=== PATIENT | male | born 1985 | race Caucasian/White ===

== ENCOUNTER 2018-01-22 10:29 | Outpatient (CLI) | payer MEDICAID ==
--- NOTE | 2018-01-22 14:54 | Ultrasound Report ---
COMPLETE ABDOMINAL ULTRASOUND: 01/22/2018 CLINICAL INDICATION: Pain. TECHNIQUE: Real-time scanning was performed with apprenticeship representative static images obtained. FINDINGS: The liver measures 14.4 cm. Hepatic echotexture is normal. No intrahepatic biliary dilatation or focal parenchymal lesion is present. The common bile duct measures 4 mm. The gallbladder is normal, as is the visualized pancreas. The kidneys are normal, with the right measuring 13.1 cm, and the left measuring 12.8 cm. The spleen measures 10.7 cm, and demonstrates normal echotexture. The abdominal aorta is normal in caliber. The inferior vena cava is unremarkable. No free fluid is present. IMPRESSION: NORMAL ABDOMINAL ULTRASOUND. TD: 01/22/2018 14:53
== END 2018-01-22 10:30 | disposition home or self-care (01) ==
LOC: DI 10:29
PROVIDERS: ATTEND Family Medicine
DX: R10.9 Unspecified abdominal pain (principal)
CPT/HCPCS: 76700

== ENCOUNTER 2018-03-07 13:02 | Outpatient (CLI) | payer MEDICAID ==
[2018-03-07] MEDS ORDERED: SINCALIDE 5 MCG VIAL ONE (15:05)
[2018-03-07] MEDS ORDERED: SINCALIDE 1.48 MCG in SODIUM CHLORIDE 0.9% 50 ML IV ONE (16:21)
--- NOTE | 2018-03-07 17:20 | Nuclear Medicine Report ---
EXAM: HEPATOBILIARY SCAN WITH CCK/KINEVAC ADMINISTRATION EXAM DATE: 03/07/2018 04:25 PM. CLINICAL HISTORY: Right upper quadrant abdominal pain. COMPARISON: None. TECHNIQUE: Following the intravenous administration of 4.8 mCi of Tc99m Mebrofenin, a hepatobiliary s can was done centered on the liver and gallbladder in multiple sequential images and projections. Following the intravenous administration of 1.48 mcg of CCK/ Kinevac over the course of approximately 60 minutes, dynamic imaging was done and the gallbladder ejection fraction was calculated. FINDINGS: Normal extraction of tracer from the blood pool indicating normal hepatocellular function. The liver size and shape is grossly within normal limits. Appearance of tracer in the biliary tree as early as 10 minutes, within normal limits. Appearance of tracer in the gallbladder as early as 10 minutes, within normal limits, with good progr ession of filling throughout the remainder of the initial hour. Appearance of tracer in the small bowel as early as 50 minutes, within normal limits. With CCK administration, the gallbladder demonstrates an effective contraction. The gallbladder eject ion fraction is calculated to be 87%, well above the lower limit of normal of 38% for a 60-minute inj ection. The patient did not report symptoms after CCK administration. No evidence of enteric reflux into the stomach. No significant collection of tracer remaining in the common bile duct by the end of the study. IMPRESSION: 1. Normal uptake and excretion of activity by the liver. 2. Normal filling of the gallbladder and excretion into the bowel. 3. Normal gallbladder ejection fraction of 87%. [facility] Referring Provider Line: [phone] SITE ID: [id number]
== END 2018-03-07 13:03 | disposition home or self-care (01) ==
LOC: DI 13:02
PROVIDERS: ATTEND Surgery
DX: R10.11 Right upper quadrant pain (principal)
CPT/HCPCS: 78227; A9537; J7040

== ENCOUNTER 2018-04-02 08:00 | Day surgery (SDC) | payer MEDICAID ==
[~2018-04-02 08:00] MED LIST: LIDO GARGLE 30 ML BOTTLE ONE
[2018-04-02] MEDS: LIDO GARGLE 30 ML BOTTLE PO ONE ×2 (08:35→09:20)
[2018-04-02] MEDS: LACTATED RINGERS 1,000 ML IV ONE ×3 (08:36→09:13)
[2018-04-02] MEDS ORDERED: fentaNYL 250 MCG/5 ML VIAL IVP ONE (09:13)
[2018-04-02] MEDS ORDERED: MIDAZOLAM 2 MG/2 ML VIAL IVP ONE (09:13)
[2018-04-02] MEDS: ONDANSETRON ODT 4 MG TABLET ONE (09:45)
[2018-04-02 09:48] VITALS: BP 107/57
== END 2018-04-02 08:01 | disposition home or self-care (01) ==
LOC: SDS 08:00
PROVIDERS: ATTEND Surgery
PROC: 0DB78ZX Excision of Stomach, Pylorus, Via Natural or Artificial Opening Endoscopic, Diagnostic (ICD-10-PCS; 2018-04-02)
PROC: 0DB48ZX Excision of Esophagogastric Junction, Via Natural or Artificial Opening Endoscopic, Diagnostic (ICD-10-PCS; 2018-04-02)
PROC: 0DB98ZX Excision of Duodenum, Via Natural or Artificial Opening Endoscopic, Diagnostic (ICD-10-PCS; principal; 2018-04-02 09:00)
DX: R10.13 Epigastric pain (principal); K44.9 Diaphragmatic hernia without obstruction or gangrene; J45.909 Unspecified asthma, uncomplicated
CPT/HCPCS: 43239; A9270; J3010; J7120; Q0162; 88305

== ENCOUNTER 2018-06-19 15:35 | Outpatient (CLI) | payer MEDICAID ==
[2018-06-19 16:43] LABS: BASOPHILS % (AUTO) 0.6 %; EOSINOPHILS # (AUTO) 0.3 10^3/uL (0.0-0.7); EOSINOPHILS % (AUTO) 3.8 %; HGB - HEMOGLOBIN 15.5 g/dL (14.0-18.0); LYMPHOCYTES # (AUTO) 2.4 10^3/uL (1.5-3.5); LYMPHOCYTES % (AUTO) 27.8 %; MEAN CORPUSCULAR HEMOGLOBIN 31.6 pg (27.0-31.0); MEAN CORPUSCULAR HGB CONC 34.6 g/dL (32.0-36.0); MEAN CORPUSCULAR VOLUME 91.5 fL (80.0-94.0); MEAN PLATELET VOLUME 7.5 fL (7.4-11.4); MONOCYTES # (AUTO) 0.6 10^3/uL (0.0-1.0); MONOCYTES % (AUTO) 7.3 %; NEUTROPHILS # (AUTO) 5.3 10^3/uL (1.5-6.6); NEUTROPHILS % (AUTO) 60.5 %; PLT - PLATELET COUNT 252 10^3/uL (130-450); RED CELL DISTRIBUTION WIDTH 13.4 % (12.0-15.0); WHITE BLOOD COUNT 8.8 x10^3/uL (4.8-10.8)
[2018-06-19 16:59] LABS: ALBUMIN 4.3 g/dL (3.2-5.5); ALBUMIN/GLOBULIN RATIO 1.3 (1.0-2.2); BILIRUBIN,TOTAL 0.6 mg/dL (0.2-1.0); CALCIUM 9.5 mg/dL (8.5-10.3); CREATININE 0.8 mg/dL (0.6-1.2); TOTAL PROTEIN 7.5 g/dL (6.7-8.2)
== END 2018-06-19 15:36 | disposition home or self-care (01) ==
LOC: LAB 15:35
PROVIDERS: ATTEND Internal Medicine Gastroenterology
DX: R10.11 Right upper quadrant pain (principal)
CPT/HCPCS: 36415; 80053; 83690; 85025

== ENCOUNTER 2018-07-22 11:35 | Outpatient (CLI) | payer MEDICAID ==
[2018-07-22] MEDS ORDERED: IOPAMIDOL-300 100 ML VIAL ONE (11:47)
[2018-07-22] MEDS ORDERED: IOPAMIDOL-300 50 ML VIAL ONE (11:47)
[2018-07-22] MEDS ORDERED: IOPAMIDOL-300 50 ML VIAL PO ONE (13:10)
[2018-07-22] MEDS ORDERED: IOPAMIDOL-300 100 ML VIAL IVP ONE (13:10)
--- NOTE | 2018-07-22 16:58 | CT Report ---
Reason: RUQ PAIN Procedure Date: 07/22/2018 Accession Number: [id number] / [id number] Procedure: CT - Abdomen W/ CPT Code: FULL RESULT: EXAM: CT ABDOMEN EXAM DATE: 07/22/2018 12:56 PM. CLINICAL HISTORY: RUQ PAIN. COMPARISON: Abdomen ultrasound 01/22/2018 TECHNIQUE: Routine helical CT imaging was performed through the abdomen. IV contrast: ISOVUE 300 100mL Enteric contrast: No. Reconstruction: Coronal and sagittal. In accordance with CT protocol optimization, one or more of the following dose reduction techniques were utilized for this exam: automated exposure control, adjustment of mA and/or KV based on patient size, or use of iterative reconstructive technique. FINDINGS: Lung Bases: Unremarkable. Liver: Normal. No masses. Gallbladder/Bile Ducts: Unremarkable. Spleen: Normal. Pancreas: Normal. Adrenal Glands: Normal. Kidneys: No masses or stones. The right renal pelvis appears slightly dilated in comparison to the prior ultrasound. This may reflect an extrarenal pelvis although the possibility of a recently passed stone is not absolutely excluded. Peritoneal Cavity/Bowel: No free fluid, free air or adenopathy. No masses or acute inflammatory process. The appendix is not seen Vasculature: No aneurysms or other significant abnormality. Bones: No significant abnormality. Other: None. IMPRESSION: Prominent right renal pelvis, question extrarenal pelvis. Otherwise negative abdomen CT. [facility]
== END 2018-07-22 11:36 | disposition home or self-care (01) ==
LOC: DI 11:35
PROVIDERS: ATTEND Internal Medicine Gastroenterology
DX: R10.11 Right upper quadrant pain (principal)
CPT/HCPCS: 74160; Q9967

== ENCOUNTER 2018-12-09 09:58 | Outpatient (CLI) | payer MEDICAID ==
--- NOTE | 2018-12-09 11:06 | XRAY Report ---
Reason: LUMBAR RADICULOPATHY Procedure Date: 12/09/2018 Accession Number: [id number] / [id number] Procedure: WCP - Lumbar Spine 2 View CPT Code: FULL RESULT: EXAM: LUMBOSACRAL SPINE RADIOGRAPHY EXAM DATE: 12/09/2018 10:16 AM. CLINICAL HISTORY: Lumbar radiculopathy. COMPARISONS: XR LUMBOSACRAL SPINE 4 VIEWS 04/12/2007 5:22 PM. TECHNIQUE: 2 views. FINDINGS: Alignment: Normal. No spondylolisthesis or scoliosis. Bones: Five sot-mrh-dvzyidc lumbar vertebral bodies are present. No fractures or bone lesions. Disks: Normal. Disk heights are maintained. Facets: No degenerative changes. Sacroiliac Joints: Unremarkable. Soft Tissues: Normal. The visualized bowel gas pattern is normal. IMPRESSION: Normal lumbar spine radiography. [facility]
== END 2018-12-09 09:59 | disposition home or self-care (01) ==
LOC: DI.WCP 09:58
PROVIDERS: ATTEND Family Medicine
DX: M54.16 Radiculopathy, lumbar region (principal)
CPT/HCPCS: 72100